=== PATIENT | female | born 2000 | race American Indian/Alaskan Native ===

== ENCOUNTER 2021-01-27 23:41 | Inpatient (IN) | payer SELFPAY ==
[2021-01-28] MEDS ORDERED: ACETAMINOPHEN 325 MG TAB PO ONE (02:57)
[2021-01-28] MEDS ORDERED: ONDANSETRON 4 MG ODT TAB PO ONE (02:57)
[2021-01-28] MEDS ORDERED: MORPHINE 2 MG/1 ML INJ IV ONE (03:03)
[2021-01-28] MEDS ORDERED: ONDANSETRON 4 MG/2 ML INJ IV ONE (03:03)
[2021-01-28] MEDS ORDERED: SODIUM CHLORIDE 0.9% 1000 ML 2,000 ML IV ONE (03:03)
--- NOTE | 2021-01-28 03:05 | Emergency Department Report ---
ED Female HPI - General Chief complaint: Vaginal Bleeding Stated complaint: VAGINAL BLEEDING Time Seen by Provider: 01/28/21 02:56 Source: EMS ( EMS documentation not available at time of chart dictation ) Mode of arrival: Stretcher Limitations: No Limitations - History of Present Illness Initial comments: Patient is a 20-year-old female, who reports that she is 2, possibly para 1. She reports that she is now, but does not know how far along she is. She has not had any care. She presents to the ER today with complaint of lower abdominal pain, and vaginal bleeding. While in the emergency room, the patient delivered a fetus, with sac, with copious bleeding. She was seen emergently by [facility]PECT[facility] physician, who accepted the patient to the labor and delivery service. While in the emergency room, the patient denied headache, neck pain, chest pain. Patient did not endorse urinary symptoms to myself MD Complaint: vaginal bleeding, pelvic pain -: Gradual, hour(s) Consistency: constant Improves with: medication Worsens with: movement Are you Now?: Yes - Related Data Allergies Allergy/AdvReac Type Severity Reaction Status Date / Time No Known Allergies Allergy Verified 01/28/21 03:31 ED Review of Systems ROS: Stated complaint: VAGINAL BLEEDING Other details as noted in HPI Comment: Unobtainable due to pts medical conditions Constitutional: denies: fever Cardiovascular: denies: chest pain Gastrointestinal: abdominal pain Genitourinary: other (Vaginal bleed) Psychiatric: anxiety ED Past Medical Hx - Past Medical History Previous Medical History?: No - Surgical History Past Surgical History?: No ED Physical Exam - General Limitations: Other (Chaperoned by Faustino Joel) General appearance: alert, anxious, in distress, obese - Head Head exam: Present: atraumatic, normocephalic - Eye Eye exam: Present: normal appearance, EOMI. Absent: nystagmus - ENT ENT exam: Present: normal exam, normal orophraynx, mucous membranes moist, normal external ear exam - Neck Neck exam: Present: normal inspection, full ROM. Absent: tenderness, meningismus - Respiratory Respiratory exam: Present: normal lung sounds bilaterally. Absent: respiratory distress, wheezes, rales, rhonchi, stridor, decreased breath sounds - Cardiovascular Cardiovascular Exam: Present: normal rhythm, tachycardia, normal heart sounds. Absent: bradycardia, irregular rhythm, systolic murmur, diastolic murmur, rubs, gallop - GI/Abdominal GI/Abdominal exam: Present: soft, tenderness. Absent: distended, guarding, rebound, rigid, pulsatile mass - External exam: Present: bleeding. Absent: normal external exam Speculum exam: Present: vaginal bleeding, tissue, other (Obvious tissue, and sac being expelled from the uterus during the examination) - Extremities Exam Extremities exam: Present: normal inspection, full ROM, other (2+ pulses noted in the bilateral upper and lower extremities. There is no palpable cord. negative Homans sign. Muscular compartments are soft. The pelvis is stable.). Absent: pedal edema, calf tenderness - Back Exam Back exam: Present: normal inspection, full ROM. Absent: tenderness, CVA tenderness (R), CVA tenderness (L), paraspinal tenderness, vertebral tenderness - Neurological Exam Neurological exam: Present: alert, other (No facial droop. Tongue midline. Extraocular movements intact bilaterally. Facial sensation intact to light touch in V1, V2, V3 distribution bilaterally. 5 and a 5 strength in 4 extremities. Sensation intact to light touch in 4 extremities.) - Psychiatric Psychiatric exam: Present: anxious - Skin Skin exam: Present: warm, dry, intact, normal color. Absent: rash ED Course Vital Signs 01/28/21 02:51 Temperature 97.5 F L Pulse Rate 120 H Respiratory 18 Rate Blood Pressure 116/62 [Right] O2 Sat by Pulse 98 Oximetry - Reevaluation(s) Reevaluation #1: 01/28/21 05:29 Laboratory studies resulted after patient had left the emergency room. Defer to inpatient team to follow-up on laboratory abnormalities and manage. ED Medical Decision Making - Lab Data Result diagrams: 01/28/21 04:02 01/28/21 04:02 Vital Signs 01/28/21 02:51 Temperature 97.5 F L Pulse Rate 120 H Respiratory 18 Rate Blood Pressure 116/62 [Right] O2 Sat by Pulse 98 Oximetry - Radiology Data Radiology results: pending, report reviewed, image reviewed US OB limited INDICATION / CLINICAL INFORMATION: vag bleed pain COMPARISON: None available. FINDINGS: Limited images of the uterus were obtained. No IUP is identified. Patient is reportedly status post recent delivery. Signer Name: Jarett Rice MD Signed: 01/28/2021 3:06 AM Workstation Name: [id number] - Medical Decision Making Differential diagnosis, including but not limited to: Miscarriage, retained products of conception Assessment and plan: 20-year-old female, who presents as , with miscarriage, no care, uncertain gestational age, who presents with expulsion of products, sac, profuse vaginal bleeding and clots, and verbal report of retained placenta. Contacted obstetrics on-call, Dr. Malloy, and have requested emergent bedside evaluation and consultation. He has presented expediently to the emergency room and evaluated the patient, and advises admission to labor and delivery for definitive care and management. He has performed a bedside ultrasound, and endorses that there are retained placental products. He also has graciously accepted the patient to his service on the labor and delivery service for definitive management Critical care attestation.: If time is entered above; I have spent that time in minutes in the direct care of this critically ill patient, excluding procedure time. ED Disposition Clinical Impression: Miscarriage, Retained products of conception Disposition: ADMITTED INPATIENT Is pt being admited?: Yes Does the pt Need Aspirin: No Condition: Serious
[2021-01-28] MEDS ORDERED: SODIUM CHLORIDE 0.9% 1000 ML 1,000 ML ONE (03:33)
[2021-01-28] MEDS ORDERED: ONDANSETRON 4 MG/2 ML INJ ONE (03:33)
[2021-01-28] MEDS ORDERED: MORPHINE 4 MG/1 ML INJ IV ONE (03:41)
[2021-01-28] MEDS ORDERED: CARBOPROST TROMETHAMINE 250 MCG/1 ML INJ IM PRN (03:59)
[2021-01-28] MEDS ORDERED: BUTORPHANOL 2 MG/1 ML INJ IV PRN (03:59)
[2021-01-28] MEDS ORDERED: MINERAL OIL 30 ML ORAL LIQD PO PRN (03:59)
[2021-01-28] MEDS ORDERED: fentaNYL 100 MCG/2 ML INJ IV PRN (03:59)
[2021-01-28] MEDS ORDERED: ACETAMINOPHEN 325 MG TAB PO PRN ×2 (03:59→09:00)
[2021-01-28] MEDS ORDERED: OXYTOCIN DRIP 30 UNITS/500 ML BAG IV SCH (04:00)
--- NOTE | 2021-01-28 04:10 | Ultrasound Report ---
US OB limited INDICATION / CLINICAL INFORMATION: vag bleed pain COMPARISON: None available. FINDINGS: Limited images of the uterus were obtained. No IUP is identified. Patient is reportedly status post r ecent delivery. Signer Name: Jarett Rice MD Signed: 01/28/2021 4:06 AM Workstation Name: [id number]
[2021-01-28 04:41] LABS: Hematocrit 35.4 % (30.3-42.9); Hemoglobin 11.4 gm/dl (10.1-14.3); Mean Corpuscular HGB Conc 32 % (30-34); Mean Corpuscular Volume 86 fl (79-97); Platelet Count 226 K/mm3 (140-440); Red Blood Count 4.11 M/mm3 (3.65-5.03); Red Cell Distribution Width 14.5 % (13.2-15.2)
--- NOTE | 2021-01-28 04:59 | History and Physical Report ---
History of Present Illness Date of admission: 01/28/21 03:59 History of present illness: 20 y/o at 16-2/7 weeks presents to main ED reporting CTX. Upon arrival to ED, buttocks, legs, and thorax were outside the maternal vagina. The head and arms were within the maternal vagina, and this was confirmed with real-time sonography. There were no FHT's noted. These finding were C/W an IUFD. 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 Family/Genetic History: none Social history: no significant social history - Obstetrical History Expected Date of Delivery: 07/13/21 Actual Gestation: 16 Week(s) 2 Day(s) : 2 Para: 0 Induced : 1 Medications and Allergies Allergies Allergy/AdvReac Type Severity Reaction Status Date / Time No Known Allergies Allergy Verified 01/28/21 03:31 Active Meds: Active Medications Acetaminophen (Acetaminophen 325 Mg Tab) 650 mg PO Q4H PRN PRN Reason: Pain, Mild (1-3) Butorphanol Tartrate (Butorphanol 2 Mg/1 Ml Inj) 1 mg IV Q2H PRN PRN Reason: Pain, Moderate(4-6) LABOR PAIN Carboprost Tromethamine (Carboprost Tromethamine 250 Mcg/1 Ml Inj) 250 mcg IM ONCE PRN PRN Reason: Uterine Bleeding Fentanyl (Fentanyl 100 Mcg/2 Ml Inj) 100 mcg IV Q2H PRN PRN Reason: Pain,Severe (7-10) LABOR PAIN Lactated Ringer's (Lactated Ringers) 1,000 mls @ 125 mls/hr IV DIRECT TK Oxytocin/Sodium Chloride (Pitocin/Ns 30 Unit/500ml) 30 units in 500 mls @ 40 mls/hr IV TITR TK; Protocol Mineral Oil (Mineral Oil 30 Ml Oral Liqd) 30 ml PO QHS PRN PRN Reason: Constipation Review of Systems All systems: negative - Vital Signs Vital signs: Vital Signs Temp Pulse Resp BP Pulse Ox 97.5 F L 120 H 18 116/62 98 01/28/21 02:51 01/28/21 02:51 01/28/21 02:51 01/28/21 02:51 01/28/21 02:51 Temp Pulse Resp BP Pulse Ox 97.5 F L 120 H 18 116/62 98 01/28/21 02:51 01/28/21 02:51 01/28/21 02:51 01/28/21 02:51 01/28/21 02:51 - Physical Exam Breasts: Positive: deferred Cardiovascular: Regular rate Lungs: Positive: Normal air movement Abdomen: Positive: normal appearance, normal bowel sounds Vulva: both: normal Vagina: Positive: other ( legs, buttocks, and thorax were protruding from the vagina.) Uterus: Positive: enlarged Adnexa: both: normal Anus/Rectum: Positive: normal perianal skin Extremities: Positive: normal - Obstetrical FHR: category 2 Cervical Dilatation: 10 Results Result Diagrams: 01/28/21 04:02 01/28/21 04:02 Abnormal lab results 01/28/21 Range/Units 04:02 WBC 19.6 H (4.5-11.0) K/mm3 All other labs normal. Ultrasound: pending, image reviewed Assessment and Plan - Patient Problems (1) 16 weeks gestation of Current Visit: Yes Status: Acute Plan to address problem: Admit to delivery unit. (2) IUFD (intrauterine ) Current Visit: Yes Status: Acute Plan to address problem: Etiology is unknown. Admit to delivery unit. >50% of the fetus has delivered, and fetus is in the breech position. I suspect soon. (3) Chorioamnionitis in second trimester Current Visit: Yes Status: Acute Plan to address problem: Rx ampicillin 2 g IVPB q 6 hours and Gentamicin 5 mg/kg/day for triple-I.
[2021-01-28 05:08] LABS: Alanine Aminotransferase 30 units/L (7-56); Albumin 3.5 g/dL (3.9-5); BUN/Creatinine Ratio 12; Blood Urea Nitrogen 6 mg/dL (7-17); Hemolysis Index 0
[2021-01-28 05:15] LABS: Anisocytosis 1+; Platelet Estimate Consistent w Auto; Total Cells Counted 100
[2021-01-28] MEDS: LACTATED RINGERS 1,000 ML IV SCH ×3 (05:42→21:24)
[2021-01-28] MEDS ORDERED: CARBOPROST TROMETHAMINE 250 MCG/1 ML INJ IM NR (06:52)
--- NOTE | 2021-01-28 07:25 | Procedure Note ---
OB Delivery Note - Vaginal Delivery presentation: breech Intrapartum events: other(please specify) (IUFD) Delivery induction: none Delivery monitor: none Route of delivery: Delivery placenta: spontaneous Delivery cord: 3 umbilical vessels Episiotomy: none Delivery laceration: none Anesthesia: none Delivery comments: Placenta expelled spontaneously after Hemabate x2. Antibiotics (ampicillin & gentamicin) to continue.
[2021-01-28] MEDS: GENTAMICIN 410 MG in SODIUM CHLORIDE 0.9% 100 ML IV SCH (08:38)
[2021-01-28] MEDS ORDERED: ONDANSETRON 4 MG/2 ML INJ IV PRN (09:00)
[2021-01-28] MEDS ORDERED: WITCH HAZEL/ GLYCERIN PAD TP PRN (09:00)
[2021-01-28] MEDS ORDERED: HYDROcodone/ACETAMINOPHEN 5-325 MG TAB PO PRN (09:00)
[2021-01-28] MEDS ORDERED: LANOLIN/ZINC/DIMETHICONE (LANSINOH) 7 GM TP PRN (09:00)
[2021-01-28] MEDS ORDERED: PROMETHAZINE 25 MG RECT SUPP PR PRN (09:00)
[2021-01-28] MEDS ORDERED: PROMETHAZINE 25 MG TAB PO PRN (09:00)
[2021-01-28] MEDS: AMPICILLIN/NS 2 GM/100 ML 2 GM/100 ML BAG IV SCH ×3 (09:02→23:38)
[2021-01-28] MEDS: IBUPROFEN 600 MG TAB PO SCH ×2 (09:09→20:15)
[2021-01-28 09:10] LABS: Monocytes # (Auto) 0.7 K/mm3 (0.0-0.8); Monocytes % (Auto) 3.4 % (0.0-7.3)
[2021-01-28 10:00] LABS: Bilirubin,Urine NEG (Negative); Blood,Urine LG (Negative); Color,Urine Yellow (Yellow); Mucus,Urine 1+ /HPF; Protein,Urine <15 mg/dL mg/dL (Negative); Urobilinogen,Urine < 2.0 mg/dL (<2.0)
[2021-01-28] MEDS ORDERED: diphenhydrAMINE 25 MG CAP PO PRN (10:00)
[2021-01-28 10:44] LABS: Hematocrit 28.6 % (30.3-42.9); Hemoglobin 9.3 gm/dl (10.1-14.3); Mean Corpuscular HGB Conc 33 % (30-34); Mean Corpuscular Volume 87 fl (79-97); Platelet Count 214 K/mm3 (140-440); Red Blood Count 3.28 M/mm3 (3.65-5.03); Red Cell Distribution Width 14.7 % (13.2-15.2)
--- NOTE | 2021-01-28 13:57 | Event Note ---
Date: 01/28/21 pt evaluated with fundal tenderness and WBC on cbc this am at 20.4; will treat with broad spectrum amp/gent/clinda antibiotics, repeat cbc in am and possibly discharge pt home tomorrow. Nurse notified. Plan of care discussed with pt.
[2021-01-28] MEDS ORDERED: FERROUS SULFATE 325 MG TAB PO SCH (14:00)
[2021-01-28] MEDS ORDERED: MAGNESIUM HYDROXIDE (MOM) ORAL LIQD UDC PO PRN (22:00)
[2021-01-29] MEDS: IBUPROFEN 600 MG TAB PO SCH ×2 (05:42→21:00)
[2021-01-29] MEDS: AMPICILLIN/NS 2 GM/100 ML 2 GM/100 ML BAG IV SCH ×3 (05:43→20:30)
--- NOTE | 2021-01-29 06:21 | Progress Note ---
Assessment and Plan A: day 1 S/P of 16 week IUFD. Anemia. Leukocytosis. Tachycardia. Grief process. P: Repeat CBC has been ordered and drawn. Continue triple antibiotics IV. Supplement with iron. Case management consult. Subjective - Subjective Date of service: 01/29/21 Principal diagnosis: day 1 S/P 16 week IUFD Interval history: Patient is receiving ampicillin, gentamicin, and clindamycin. CBC drawn this morning; results pending. Patient reports: appetite normal, voiding normally, pain well controlled, flatus, ambulating normally, no dizzy ambulation, no nauseated Objective - Vital Signs Latest vital signs: Vital Signs Temp Pulse Resp BP BP Pulse Ox 01/29/21 02:21 97.9 F 109 H 18 106/56 99 01/28/21 21:28 98.8 F 110 H 18 128/58 100 01/28/21 19:30 98 01/28/21 17:21 98.4 F 117 H 18 124/68 100 01/28/21 13:04 98.0 F 92 H 18 104/46 100 01/28/21 08:41 88 119/64 99 01/28/21 08:40 98.0 F 85 14 119/64 100 01/28/21 08:36 85 100 01/28/21 08:31 92 H 100 01/28/21 08:26 82 100 01/28/21 08:23 18 98 01/28/21 08:21 94 H 100 01/28/21 08:16 94 H 99 01/28/21 08:11 93 H 100 01/28/21 08:06 89 99 01/28/21 08:01 95 H 100 01/28/21 07:56 93 H 99 01/28/21 07:51 81 99 01/28/21 07:48 78 114/56 01/28/21 07:47 97.9 F 85 18 114/56 98 01/28/21 07:46 110 H 98 01/28/21 07:41 80 98 01/28/21 07:36 84 99 01/28/21 07:31 87 98 01/28/21 07:26 98 H 98 01/28/21 07:21 78 99 01/28/21 07:16 78 98 01/28/21 07:11 75 97 01/28/21 07:06 74 97 01/28/21 07:03 78 92 01/28/21 07:01 84 100 01/28/21 06:56 75 100 01/28/21 06:51 85 100 01/28/21 06:46 92 H 100 01/28/21 06:41 87 18 99 01/28/21 06:37 106 H 94 01/28/21 06:36 90 99 01/28/21 06:31 95 H 100 01/28/21 06:26 95 H 99 01/28/21 06:21 75 99 Intake and Output 01/28/21 01/28/21 01/29/21 15:59 23:59 07:59 Intake Total 972.628 0420 340 Output Total 640 525 200 Balance 596.390 7984 140 Intake: IV 865.919 6334 100 AMPICILLIN/NS 2 GM/100 ML 100 100 100 2 gm In 100 ml @ 100 mls /hr IV Q6H TK Rx#: [id number] CLEOCIN 900 MG/50 mL 900 50 mg In 50 ml @ 100 mls/hr IV Q8H TK Rx#:[id number] Lactated Ringers 1,000 ml 253.770 3549 @ 125 mls/hr IV DIRECT TK Rx#:[id number] Oral 240 Intake, Free Water 600 240 Output: Urine 640 525 200 Void 640 525 200 Other: Total, Intake Amount 240 Total, Output Amount 300 200 200 Voiding Method Toilet Toilet # Voids Void 1 2 - Exam Cardiovascular: Present: Regular rate Lungs: Present: Clear to auscultation Abdomen: Present: normal appearance, soft. Absent: distention, guarding, rigidity Uterus: Present: firm, tenderness, fundal height below umbilicus. Absent: bogginess Extremities: Absent: tenderness, edema - Labs Labs: Abnormal lab results 01/28/21 01/28/21 Range/Units 04:02 09:37 WBC 20.4 H (4.5-11.0) K/mm3 RBC 3.28 L (3.65-5.03) M/mm3 Hgb 9.3 L (10.1-14.3) gm/dl Hct 28.6 L D (30.3-42.9) % Seg Neutrophils # 18.0 H (1.8-7.7) K/mm3
[2021-01-29 09:23] LABS: Basophils # (Auto) 0.1 K/mm3 (0.0-0.1); Basophils % (Auto) 0.7 % (0.0-1.8); Eosinophils # (Auto) 0.1 K/mm3 (0.0-0.4); Eosinophils % (Auto) 1.3 % (0.0-4.3); Hematocrit 21.8 % (30.3-42.9); Hemoglobin 7.2 gm/dl (10.1-14.3); Lymphocytes # (Auto) 3.3 K/mm3 (1.2-5.4); Lymphocytes % (Auto) 30.4 % (13.4-35.0); Mean Corpuscular HGB Conc 33 % (30-34); Mean Corpuscular Volume 88 fl (79-97); Monocytes # (Auto) 0.7 K/mm3 (0.0-0.8); Monocytes % (Auto) 6.5 % (0.0-7.3); Platelet Count 178 K/mm3 (140-440); Red Blood Count 2.47 M/mm3 (3.65-5.03); Red Cell Distribution Width 14.8 % (13.2-15.2)
[2021-01-29] MEDS: GENTAMICIN 410 MG in SODIUM CHLORIDE 0.9% 100 ML IV SCH (10:06)
[2021-01-29] MEDS: LACTATED RINGERS 1,000 ML IV SCH (10:06)
[2021-01-29] MEDS: FERROUS SULFATE 325 MG TAB PO SCH (16:33)
[2021-01-29] MEDS ORDERED: GENTAMICIN 410 MG in SODIUM CHLORIDE 0.9% 100 ML IV SCH (17:29)
--- NOTE | 2021-01-29 17:37 | Event Note ---
Date: 01/29/21 Pt evaluated with hgb falling. Pt having chills when I went in the room yet afrebrile. Pt has been receiving amp/gent/clinda. Bimanual done and cervix closed. Limited size of uterus due to habitus. Pelvic u/s ordered to ensure normal uterus and adnexa. Consult done to hospitalist for persistent tacchycardia and Dr. Etienne recommends CT Abd/Pelvis and same ordered. Blood cx and urine cx negative. Plan of care discussed with pt. All questions encouraged and answered.
[2021-01-29 19:43] LABS: Basophils # (Auto) 0.1 K/mm3 (0.0-0.1); Basophils % (Auto) 0.4 % (0.0-1.8); Eosinophils # (Auto) 0.2 K/mm3 (0.0-0.4); Eosinophils % (Auto) 1.2 % (0.0-4.3); Hematocrit 25.4 % (30.3-42.9); Hemoglobin 8.1 gm/dl (10.1-14.3); Lymphocytes # (Auto) 3.1 K/mm3 (1.2-5.4); Lymphocytes % (Auto) 22.2 % (13.4-35.0); Mean Corpuscular HGB Conc 32 % (30-34); Mean Corpuscular Volume 88 fl (79-97); Monocytes % (Auto) 6.9 % (0.0-7.3); Platelet Count 228 K/mm3 (140-440); Red Blood Count 2.89 M/mm3 (3.65-5.03)
--- NOTE | 2021-01-29 20:26 | Ultrasound Report ---
US PELVIC LIMITED INDICATION / CLINICAL INFORMATION: anemia, , ppd1 IUFD; retain POC; fluid pelvic. COMPARISON: Yesterday. FINDINGS: Transabdominal images were obtained. The uterus measures 9.5 x 6.8 x 9.5 cm. The endometrial stripe m easures approximately 2.6 cm AP. The endometrium is homogeneous in appearance and no endometrial flui d is seen. The right ovary measures 3.0 x 2.0 x 1.8 cm and the left ovary 4.0 x 2.7 x 2.9 cm. There i s normal blood flow to both ovaries on Doppler exam. No abnormal mass or fluid collection is seen. IMPRESSION: Nonspecific thickening of the endometrial stripe without other abnormality. Signer Name: Fahad Trotter MD Signed: 01/29/2021 8:22 PM Workstation Name: [id number]
--- NOTE | 2021-01-30 00:57 | Cat Scan Report ---
CT ABDOMEN AND PELVIS WITH CONTRAST INDICATION / CLINICAL INFORMATION: Worsening severe anemia, tachycardia, IUFD. TECHNIQUE: Axial CT images were obtained through the abdomen and pelvis after 100 cc Omnipaque [address] scans at this location are performed using CT dose reduction for ALARA by means of automated exposure control. COMPARISON: Pelvic ultrasound from earlier today. FINDINGS: LOWER CHEST: No significant abnormality. LIVER: No significant abnormality. BILIARY: The gallbladder is unremarkable. No biliary ductal dilatation. PANCREAS: No significant abnormality. SPLEEN: No significant abnormality. ADRENALS: No significant abnormality. KIDNEYS / URETERS: No significant abnormality. GI TRACT: No significant abnormality of the stomach, small bowel or colon. The appendix is unremarkab le. PERITONEUM: No free fluid. No free air. No fluid collection. LYMPH NODES: No significant adenopathy. VASCULATURE: No significant abnormality. URINARY BLADDER: No significant abnormality. REPRODUCTIVE ORGANS: There is expected prominence of the uterus after recent delivery. Heterogeneous enhancement of the uterus is noted without a distinct mass. No significant adnexal abnormality. ADDITIONAL FINDINGS: None. BONES: No significant abnormality. IMPRESSION: 1. Heterogeneous enhancement of the uterus without visualization of a uterine mass or hematoma. 2. No other acute findings. Signer Name: Gabriel Moreira MD Signed: 01/30/2021 12:52 AM Workstation Name: [id number]
[2021-01-30] MEDS ORDERED: LACTATED RINGERS 1,000 ML IV SCH (01:30)
[2021-01-30] MEDS: DOCUSATE SODIUM 100 MG CAP PO SCH ×2 (02:07→11:09)
[2021-01-30] MEDS: IBUPROFEN 600 MG TAB PO SCH (02:07)
[2021-01-30] MEDS: FERROUS SULFATE 325 MG TAB PO SCH ×2 (02:07→08:45)
[2021-01-30] MEDS: AMPICILLIN/NS 2 GM/100 ML 2 GM/100 ML BAG IV SCH ×2 (03:25→03:26)
[2021-01-30] MEDS: ASCORBIC ACID 500 MG TAB PO SCH ×2 (03:28→11:08)
--- NOTE | 2021-01-30 06:35 | Consultation ---
History of Present Illness - Reason for Consult Consult date: 01/29/21 Medical management Requesting physician: MELISSA IBARRA Past History Social history: no significant social history Medications and Allergies Allergies Allergy/AdvReac Type Severity Reaction Status Date / Time No Known Allergies Allergy Verified 01/28/21 03:31 Active Meds: Active Medications Acetaminophen (Acetaminophen 325 Mg Tab) 650 mg PO Q4H PRN PRN Reason: Pain MILD(1-3)/Fever >100.5/WILLIS Hydrocodone Bitart/Acetaminophen (Hydrocodone/Acetaminophen 5-325 Mg Tab) 2 each PO Q6H PRN PRN Reason: Pain, Moderate (4-6) Ascorbic Acid (Ascorbic Acid 500 Mg Tab) 500 mg PO BID [facility] Last Admin: 01/30/21 03:28 Dose: 500 mg Documented by: Bisacodyl (Bisacodyl 10 Mg Rect Supp) 10 mg UT BID PRN PRN Reason: Constipation Butorphanol Tartrate (Butorphanol 2 Mg/1 Ml Inj) 1 mg IV Q2H PRN PRN Reason: Pain, Moderate(4-6) LABOR PAIN Last Admin: 01/28/21 06:58 Dose: 1 mg Documented by: Diphenhydramine HCl (Diphenhydramine 25 Mg Cap) 25 mg PO Q6H PRN PRN Reason: Itching Docusate Sodium (Docusate Sodium 100 Mg Cap) 100 mg PO BID [facility] Last Admin: 01/30/21 02:07 Dose: 100 mg Documented by: Fentanyl (Fentanyl 100 Mcg/2 Ml Inj) 100 mcg IV Q2H PRN PRN Reason: Pain,Severe (7-10) LABOR PAIN Last Admin: 01/28/21 05:41 Dose: 100 mcg Documented by: Ferrous Sulfate (Ferrous Sulfate 325 Mg Tab) 325 mg PO TID [facility] Last Admin: 01/30/21 02:07 Dose: 325 mg Documented by: Oxytocin/Sodium Chloride (Pitocin/Ns 30 Unit/500ml) 30 units in 500 mls @ 40 mls/hr IV TITR [facility]; Protocol Last Admin: 01/28/21 05:42 Dose: 40 ml/hr, 40 mls/hr Documented by: Ampicillin Sodium (Ampicillin/Ns 2 Gm/100 Ml) 2 gm in 100 mls @ 100 mls/hr IV Q6H [facility]; Protocol Stop: 01/30/21 12:59 Last Admin: 01/30/21 03:26 Dose: 100 mls/hr Documented by: Clindamycin HCl (Cleocin 900 Mg/50 Ml) 900 mg in 50 mls @ 100 mls/hr IV Q8H TK; Protocol Stop: 01/31/21 09:57 Last Admin: 01/30/21 02:06 Dose: 100 mls/hr Documented by: Gentamicin Sulfate 410 mg/ (Sodium Chloride) 110.25 mls @ 200 mls/hr IV Q24H TK; Protocol Stop: 01/30/21 18:02 Last Admin: 01/30/21 03:30 Dose: Not Given Documented by: Lactated Ringer's (Lactated Ringers) 1,000 mls @ 25 mls/hr IV DIRECT TK Last Admin: 01/30/21 01:56 Dose: 25 mls/hr Documented by: Ibuprofen (Ibuprofen 600 Mg Tab) 600 mg PO Q6H TK Last Admin: 01/30/21 02:07 Dose: 600 mg Documented by: Magnesium Hydroxide (Magnesium Hydroxide (Mom) Oral Liqd Udc) 30 ml PO HS PRN PRN Reason: Constipation Mineral Oil (Mineral Oil 30 Ml Oral Liqd) 30 ml PO QHS PRN PRN Reason: Constipation Multi-Ingredient Ointment (Lanolin/Zinc/Dimethicone (Lansinoh) 7 Gm) 1 applic TP PRN PRN PRN Reason: Sore Nipples Ondansetron HCl (Ondansetron 4 Mg/2 Ml Inj) 4 mg IV Q8H PRN PRN Reason: Nausea And Vomiting Last Admin: 01/29/21 21:17 Dose: 4 mg Documented by: Promethazine HCl (Promethazine 25 Mg Rect Supp) 25 mg UT Q6H PRN PRN Reason: Nausea And Vomiting Promethazine HCl (Promethazine 25 Mg Tab) 25 mg PO Q6H PRN PRN Reason: Nausea And Vomiting Sodium Chloride (Sodium Chloride 0.9% 10 Ml Flush Syringe) 10 ml IV PRN NR Stop: 02/10/21 07:59 Witch Mayra/Glycerin (Witch Mayra/ Glycerin Pad) 1 each TP PRN PRN PRN Reason: Hemorrhoid/cleansing/soothing Exam - Constitutional Vitals: Temp Pulse Resp BP Pulse Ox 98.0 F 89 18 93/34 100 01/30/21 04:51 01/30/21 04:51 01/30/21 04:51 01/30/21 04:51 01/30/21 04:51 Results - Labs CBC & Chem 7: 01/29/21 19:23 01/28/21 04:02 Labs: Abnormal lab results 01/29/21 01/29/21 Range/Units 08:14 19:23 WBC 14.0 H (4.5-11.0) K/mm3 RBC 2.47 L 2.89 L (3.65-5.03) M/mm3 Hgb 7.2 L 8.1 L (10.1-14.3) gm/dl Hct 21.8 L D 25.4 L (30.3-42.9) % [place]cd[place] # (Auto) 1.0 H (0.0-0.8) K/mm3 Seg Neutrophils # 9.7 H (1.8-7.7) K/mm3 - Imaging and Cardiology CT scan - abdomen: report reviewed (No acute findings) Assessment and Plan - Patient Problems (1) Tachycardia Current Visit: Yes Status: Acute Plan to address problem: Volume depletion IV fluids for now
[2021-01-30] MEDS ORDERED: IBUPROFEN 800 MG TAB PO PRN (08:00)
[2021-01-30 09:30] VITALS: BP 109/61
--- NOTE | 2021-01-30 09:40 | Progress Note ---
Assessment and Plan A: day 2 S/P following IUFD at 16 weeks. Grief process. Anemia. P: Dr. Melgoza orders to discharge patient home today. Patient is awaiting case consultant to see her to help her with community resources for grief counseling. Discussed with patient discharge instructions and warning signs. Advised patient to continue taking her vitamin and iron supplement daily at home. Advised patient to take Augmentin at home as prescribed (Rx Augmentin and Motrin written by Dr. Melgoza and RN to give written Rxs to patient at time of discharge today). Advised patient to avoid intercourse, lifting, housework. Advised patient to follow up at [facility] office in 1 week (patient to call for appointment). Patient voiced understanding of all instructions. Subjective - Subjective Date of service: 01/30/21 Principal diagnosis: day 2 S/P 16 week IUFD (16 weeks) Interval history: Dr. Melgoza reviewed chart and orders to discharge patient home today. Will discharge patient home today after she sees case consultant (order was put in yesterday but still waiting to see case consultant to discuss community resources for grief counseling). Patient denies headache, dizziness, chest pain, cough, shortness of breath, fever or chills, abdominal pain, heavy bleeding, urinary symptoms, or depression. Patient is experiencing grief process. States she has good family support. States she plans to seek outpatient grief counseling. Patient reports: appetite normal, voiding normally, pain well controlled, flatus, ambulating normally, no dizzy ambulation, no nauseated Objective - Vital Signs Latest vital signs: Vital Signs Temp Pulse Resp BP Pulse Ox Pulse Ox 01/30/21 09:01 98.5 F 98 H 18 109/61 100 01/30/21 08:00 99 01/30/21 04:51 98.0 F 89 18 93/34 100 01/30/21 00:52 98.0 F 90 18 105/41 99 01/29/21 20:15 98.2 F 120 H 18 114/59 99 01/29/21 16:38 98.9 F 110 H 18 113/64 100 Intake and Output 01/29/21 01/30/21 01/30/21 23:59 07:59 15:59 Intake Total 300 200 Balance 300 200 Intake: Oral 200 Intake, Free Water 300 Other: Total, Intake Amount 200 # Voids Void 1 1 - Exam Cardiovascular: Present: Regular rate, No murmurs Lungs: Present: Clear to auscultation Abdomen: Present: normal appearance, soft, normal bowel sounds. Absent: distention, tenderness, guarding, rigidity Uterus: Present: firm, fundal height below umbilicus. Absent: bogginess, tenderness Extremities: Absent: tenderness, edema - Labs Labs: Abnormal lab results 01/29/21 Range/Units 19:23 WBC 14.0 H (4.5-11.0) K/mm3 RBC 2.89 L (3.65-5.03) M/mm3 Hgb 8.1 L (10.1-14.3) gm/dl Hct 25.4 L (30.3-42.9) % [place] # (Auto) 1.0 H (0.0-0.8) K/mm3 Seg Neutrophils # 9.7 H (1.8-7.7) K/mm3
--- NOTE | 2021-01-30 09:51 | Event Note ---
Date: 01/30/21 Late entry for normal pelvic u/s and normal CT seen. Appreciate med consult and pt with normal heart now, s/p IV abx x48hrs and IV fluids. May go home and SHANNAN Lee notified.
--- NOTE | 2021-01-30 09:58 | Discharge Summary ---
Providers - Providers Date of Admission: 01/28/21 07:26 Date of discharge: 01/30/21 Attending physician: MELISSA IBARRA 01/28/21 03:37 Consult to Physician [CONS] Urgent Comment: Consulting Provider: NICHO ERVIN Physician Instructions: Reason For Exam: miscarriage 01/29/21 06:24 Consult to Case Management [CONS] Routine Services Needed at Discharge: Paver Layer Comment:: IUFD; grief process 01/29/21 17:29 Consult to Physician [CONS] Urgent Comment: Consulting Provider: DAVID STEVENS Physician Instructions: Reason For Exam: persistent tacchycardia, ppd#1 IUFD 16wk vag deliv Primary care physician: CONTRACT MODELER Hospitalization Reason for admission: IUFD Delivery: Laceration: none Discharge diagnosis: other (IUFD 16 weeks, delivered) Pertinent studies: Labs, ultrasound, CT Hospital course: Stable hospital course Condition at discharge: Good Disposition: 01 HOME / SELF CARE / HOMELESS - Discharge Diagnoses (1) IUFD (intrauterine ) Status: Acute (2) Anemia Status: Acute Plan - Discharge Medications Prescriptions: Amoxicillin/Potassium Clav [Augmentin 875-125 Tablet] 1 each PO BID 5 Days #10 tablet Ibuprofen [Motrin] 800 mg PO Q8HR PRN 21 Days #40 tablet PRN Reason: Pain , Severe (7-10) - Provider Discharge Summary Activity: routine, no sex for 6 weeks, no heavy lifting 4 weeks, no strenuous exercise Diet: routine Instructions: routine Additional instructions: Continue taking your vitamin and iron supplement daily at home. Take Augmentin as prescribed at home. Follow up at [facility] in 1 week. Call your doctor immediately for: * Fever > 100.5 * Heavy vaginal bleeding ( >1 pad per hour) * Severe persistent headache * Shortness of breath * Reddened, hot, painful area to leg or breast - Follow up plan Follow up: ALMAS CAAL CNM [Advanced Practice Nurse] - 7 Days
--- NOTE | 2021-01-30 11:56 | Event Note ---
Date: 01/30/21 Discharge order cancelled and mental health consult ordered because patient's nurse just informed me that patient did not pass her depression screen this morning. Spoke with patient about cancelled discharge order and need to see mental health provider before discharge. Patient states she will sign herself out AMA today. Advised patient of risks and advised patient that she is always welcome to return. Warning signs discussed with pt.
--- NOTE | 2021-01-30 12:25 | Event Note ---
Date: 01/30/21 Medicine was originally consulted due to the patient being tachycardic. Recommendations were made for volume resuscitation, the patient's tachycardia has resolved. Medicine will be signing off at this time. Please all hesitate to reach out should any questions arise.
== END 2021-01-30 12:15 | disposition left against medical advice (07) | DRG 805 ==
LOC: ED 23:41 → LD 01-28 03:59 → OBSVTOIN 01-28 07:26 → OB 01-28 09:12
PROVIDERS: ADMIT Obstetrics & Gynecology; ATTEND Obstetrics & Gynecology
PROC: 10E0XZZ Delivery of Products of Conception, External Approach (ICD-10-PCS; principal; 2021-01-28)
DX: O36.4XX0 Maternal care for intrauterine death, not applicable or unspecified (principal); O41.1220 Chorioamnionitis, second trimester, not applicable or unspecified; Z37.1 Single stillbirth; O60.12X0 Preterm labor second trimester with preterm delivery second trimester, not applicable or unspecified; O99.13 Other diseases of the blood and blood-forming organs and certain disorders involving the immune mechanism complicating the puerperium; Z3A.16 16 weeks gestation of pregnancy; O32.1XX0 Maternal care for breech presentation, not applicable or unspecified; O90.81 Anemia of the puerperium; O99.891 Other specified diseases and conditions complicating pregnancy; R00.0 Tachycardia, unspecified; Z20.822 Contact with and (suspected) exposure to COVID-19
CPT/HCPCS: 36415; 74177; 76815; 76857; 80053; 81001; 83735; 84702; 85007; 85025; 85027; 86592; 86706; 86762; 86850; 86900; 86901; 87040; 87086; 87806; 88305; 96360; 99285; G0378; J3490; J7502; Q0162; J0290; J0595; J1580; J2270; J2405; J2590; J3010; J7030; J7120; Q9967; U0003

== ENCOUNTER 2021-02-09 17:22 | Emergency (ER) | payer SELFPAY ==
[2021-02-09 20:01] LABS: Basophils % (Auto) 0.6 % (0.0-1.8); Eosinophils % (Auto) 0.3 % (0.0-4.3); Hematocrit 29.6 % (30.3-42.9); Hemoglobin 9.4 gm/dl (10.1-14.3); Lymphocytes # (Auto) 2.1 K/mm3 (1.2-5.4); Lymphocytes % (Auto) 34.5 % (13.4-35.0); Mean Corpuscular HGB Conc 32 % (30-34); Mean Corpuscular Volume 87 fl (79-97); Monocytes # (Auto) 0.7 K/mm3 (0.0-0.8); Monocytes % (Auto) 11.4 % (0.0-7.3); Platelet Count 368 K/mm3 (140-440); Red Cell Distribution Width 15.5 % (13.2-15.2)
[2021-02-09 20:22] LABS: Alanine Aminotransferase 17 units/L (7-56); Albumin 3.9 g/dL (3.9-5); Blood Urea Nitrogen 7 mg/dL (7-17); Calcium 9.1 mg/dL (8.4-10.2); Hemolysis Index 3
[2021-02-09 20:28] LABS: BUN/Creatinine Ratio 10
[2021-02-10] MEDS ORDERED: ACETAMINOPHEN 500 MG TAB PO ONE (00:36)
--- NOTE | 2021-02-10 01:29 | XRay Report ---
CHEST 2 VIEWS INDICATION / CLINICAL INFORMATION: cough. COMPARISON: None available. FINDINGS: SUPPORT DEVICES: None. HEART / MEDIASTINUM: No significant abnormality. LUNGS / PLEURA: No significant pulmonary or pleural abnormality. No pneumothorax. ADDITIONAL FINDINGS: No significant additional findings. IMPRESSION: 1. No acute findings. Signer Name: Santo Cortes DO Signed: 02/10/2021 1:25 AM Workstation Name: [id number]
[2021-02-10 01:45] LABS: Bilirubin,Urine NEG (Negative); Blood,Urine MOD (Negative); Color,Urine Yellow (Yellow); Mucus,Urine FEW /HPF; Protein,Urine <15 mg/dL mg/dL (Negative); Urobilinogen,Urine < 2.0 mg/dL (<2.0)
--- NOTE | 2021-02-10 02:10 | Emergency Department Report ---
ED General Adult HPI - General Chief complaint: Vaginal Bleeding Stated complaint: POSSIBLE MISCARRIAGE Time Seen by Provider: 02/10/21 01:30 Source: patient Mode of arrival: Ambulatory Limitations: No Limitations - History of Present Illness Initial comments: Patient is a 20-year-old female who presents with weakness and body aches been going on for last few days. She also states that she has been feeling some nausea. She was seen by [facility] and was told to come over here to the emergency department. Patient states pain is a 3 out of 10. Patient is also requesting some medication for anxiety. Severity scale (0 -10): 8 - Related Data Previous Rx's Medication Instructions Recorded Last Taken Type Amoxicillin/Potassium Clav 1 each PO BID 5 Days #10 tablet 01/30/21 Unknown Rx [Augmentin 875-125 Tablet] Ibuprofen [Motrin] 800 mg PO Q8HR PRN 21 Days #40 01/30/21 Unknown Rx tablet Ibuprofen/Pseudoephedrine HCl 1 each PO Q6H PRN #30 tablet 02/10/21 Unknown Rx [Advil Cold & Sinus Caplet] Ondansetron [Zofran Odt] 4 mg PO Q8HR #12 tab.rapdis 02/10/21 Unknown Rx hydrOXYzine HCL [Atarax] 25 mg PO Q6HR PRN #25 tablet 02/10/21 Unknown Rx Allergies Allergy/AdvReac Type Severity Reaction Status Date / Time No Known Allergies Allergy Verified 01/28/21 03:31 ED Review of Systems ROS: Stated complaint: POSSIBLE MISCARRIAGE Other details as noted in HPI Constitutional: denies: chills, fever Eyes: denies: eye pain, eye discharge, vision change ENT: denies: ear pain, throat pain Respiratory: denies: cough, shortness of breath, wheezing Cardiovascular: denies: chest pain, palpitations Endocrine: no symptoms reported Gastrointestinal: denies: abdominal pain, nausea, diarrhea Genitourinary: other (Vaginal bleeding). denies: urgency, dysuria, discharge Musculoskeletal: myalgia. denies: back pain, joint swelling, arthralgia Skin: denies: rash, lesions Neurological: denies: headache, weakness, paresthesias Psychiatric: denies: anxiety, depression Hematological/Lymphatic: denies: easy bleeding, easy bruising ED Past Medical Hx - Past Medical History Previous Medical History?: No Hx Hypertension: No Hx Congestive Heart Failure: No Hx Diabetes: No Hx Deep Vein Thrombosis: No Hx Renal Disease: No Hx Sickle Cell Disease: No Hx Seizures: No Hx Asthma: No Hx COPD: No Hx HIV: No - Surgical History Past Surgical History?: No - Social History Smoking Status: Never Smoker - Medications Home Medications: Home Medications Medication Instructions Recorded Confirmed Last Taken Type Amoxicillin/Potassium Clav 1 each PO BID 5 Days #10 tablet 01/30/21 Unknown Rx [Augmentin 875-125 Tablet] Ibuprofen [Motrin] 800 mg PO Q8HR PRN 21 Days #40 01/30/21 Unknown Rx tablet Ibuprofen/Pseudoephedrine HCl 1 each PO Q6H PRN #30 tablet 02/10/21 Unknown Rx [Advil Cold & Sinus Caplet] Ondansetron [Zofran Odt] 4 mg PO Q8HR #12 tab.rapdis 02/10/21 Unknown Rx hydrOXYzine HCL [Atarax] 25 mg PO Q6HR PRN #25 tablet 02/10/21 Unknown Rx ED Physical Exam - General Limitations: No Limitations General appearance: alert, in no apparent distress - Head Head exam: Present: atraumatic, normocephalic - Eye Eye exam: Present: normal appearance - ENT ENT exam: Present: mucous membranes moist - Neck Neck exam: Present: normal inspection - Respiratory Respiratory exam: Present: normal lung sounds bilaterally. Absent: respiratory distress - Cardiovascular Cardiovascular Exam: Present: regular rate, normal rhythm. Absent: systolic murmur, diastolic murmur, rubs, gallop - GI/Abdominal GI/Abdominal exam: Present: soft, normal bowel sounds - Extremities Exam Extremities exam: Present: normal inspection - Back Exam Back exam: Present: normal inspection - Neurological Exam Neurological exam: Present: alert, oriented X3 - Psychiatric Psychiatric exam: Present: normal affect, normal mood - Skin Skin exam: Present: warm, dry, intact, normal color. Absent: rash ED Course Vital Signs 02/09/21 02/10/21 19:36 00:55 Temperature 99.8 F H Pulse Rate 107 H Respiratory 18 16 Rate Blood Pressure 137/76 O2 Sat by Pulse 100 Oximetry ED Medical Decision Making - Lab Data Result diagrams: 02/09/21 19:49 02/09/21 19:49 Lab Results 02/09/21 02/09/21 02/09/21 Range/Units 19:49 19:49 19:49 WBC 6.2 (4.5-11.0) K/mm3 RBC 3.40 L (3.65-5.03) M/mm3 Hgb 9.4 L (10.1-14.3) gm/dl Hct 29.6 L (30.3-42.9) % MCV 87 (79-97) fl MCH 28 (28-32) pg MCHC 32 (30-34) % RDW 15.5 H (13.2-15.2) % Plt Count 368 (140-440) K/mm3 Lymph % (Auto) 34.5 (13.4-35.0) % [place] % (Auto) 11.4 H (0.0-7.3) % Eos % (Auto) 0.3 (0.0-4.3) % Baso % (Auto) 0.6 (0.0-1.8) % Lymph # (Auto) 2.1 (1.2-5.4) K/mm3 [place] # (Auto) 0.7 (0.0-0.8) K/mm3 Eos # (Auto) 0.0 (0.0-0.4) K/mm3 Baso # (Auto) 0.0 (0.0-0.1) K/mm3 Seg Neutrophils % 53.2 (40.0-70.0) % Seg Neutrophils # 3.3 (1.8-7.7) K/mm3 Sodium (137-145) mmol/L Potassium (3.6-5.0) mmol/L Chloride (98-107) mmol/L Carbon Dioxide (22-30) mmol/L Anion Gap mmol/L BUN (7-17) mg/dL Creatinine (0.6-1.2) mg/dL Estimated GFR ml/min BUN/Creatinine Ratio % Glucose (65-100) mg/dL Calcium (8.4-10.2) mg/dL Total Bilirubin (0.1-1.2) mg/dL AST (5-40) units/L ALT (7-56) units/L Alkaline Phosphatase (35-129) units/L Total Protein (6.3-8.2) g/dL Albumin (3.9-5) g/dL Albumin/Globulin Ratio % HCG, Quant 30.05 H (0-4) mIU/mL Urine Color (Yellow) Urine Turbidity (Clear) Urine pH (5.0-7.0) Ur Specific [place] (1.003-1.030) Urine Protein (Negative) mg/dL Urine Glucose (UA) (Negative) mg/dL Urine Ketones (Negative) mg/dL Urine Blood (Negative) Urine Nitrite (Negative) Urine Bilirubin (Negative) Urine Urobilinogen (<2.0) mg/dL Ur Leukocyte Esterase (Negative) Urine WBC (Auto) (0.0-6.0) /HPF Urine RBC (Auto) (0.0-6.0) /HPF U Epithel Cells (Auto) (0-13.0) /HPF Urine Mucus /HPF Blood Type B POSITIVE 02/09/21 02/10/21 Range/Units 19:49 01:15 WBC (4.5-11.0) K/mm3 RBC (3.65-5.03) M/mm3 Hgb (10.1-14.3) gm/dl Hct (30.3-42.9) % MCV (79-97) fl MCH (28-32) pg MCHC (30-34) % RDW (13.2-15.2) % Plt Count (140-440) K/mm3 Lymph % (Auto) (13.4-35.0) % [place] % (Auto) (0.0-7.3) % Eos % (Auto) (0.0-4.3) % Baso % (Auto) (0.0-1.8) % Lymph # (Auto) (1.2-5.4) K/mm3 [place] # (Auto) (0.0-0.8) K/mm3 Eos # (Auto) (0.0-0.4) K/mm3 Baso # (Auto) (0.0-0.1) K/mm3 Seg Neutrophils % (40.0-70.0) % Seg Neutrophils # (1.8-7.7) K/mm3 Sodium 138 (137-145) mmol/L Potassium 3.7 (3.6-5.0) mmol/L Chloride 102.2 (98-107) mmol/L Carbon Dioxide 21 L (22-30) mmol/L Anion Gap 19 mmol/L BUN 7 (7-17) mg/dL Creatinine 0.7 (0.6-1.2) mg/dL Estimated GFR > 60 ml/min BUN/Creatinine Ratio 10 % Glucose 92 (65-100) mg/dL Calcium 9.1 (8.4-10.2) mg/dL Total Bilirubin 0.20 (0.1-1.2) mg/dL AST 24 (5-40) units/L ALT 17 (7-56) units/L Alkaline Phosphatase 63 (35-129) units/L Total Protein 7.4 (6.3-8.2) g/dL Albumin 3.9 (3.9-5) g/dL Albumin/Globulin Ratio 1.1 % HCG, Quant (0-4) mIU/mL Urine Color Yellow (Yellow) Urine Turbidity Slightly-cloudy (Clear) Urine pH 5.0 (5.0-7.0) Ur Specific [place] 1.010 (1.003-1.030) Urine Protein <15 mg/dl (Negative) mg/dL Urine Glucose (UA) Neg (Negative) mg/dL Urine Ketones Neg (Negative) mg/dL Urine Blood Mod (Negative) Urine Nitrite Neg (Negative) Urine Bilirubin Neg (Negative) Urine Urobilinogen < 2.0 (<2.0) mg/dL Ur Leukocyte Esterase Neg (Negative) Urine WBC (Auto) 3.0 (0.0-6.0) /HPF Urine RBC (Auto) 1.0 (0.0-6.0) /HPF U Epithel Cells (Auto) < 1.0 (0-13.0) /HPF Urine Mucus Few /HPF Blood Type - Radiology Data Radiology results: report reviewed, image reviewed Chest x-ray: Shows no acute cardiopulmonary disease - Medical Decision Making Chief medical diagnosis: Pneumonia Differential medical diagnosis UTI, anxiety, COVID-19 I will get CBC BMP urinalysis and chest x-ray I will give patient Tylenol Atarax and Zofran to go home with Critical care attestation.: If time is entered above; I have spent that time in minutes in the direct care of this critically ill patient, excluding procedure time. ED Disposition Clinical Impression: COVID-19, Body aches Disposition: HOME / SELF CARE / HOMELESS Is pt being admited?: No Does the pt Need Aspirin: No Condition: Stable Instructions: COVID-19 Prescriptions: Ibuprofen/Pseudoephedrine HCl [Advil Cold & Sinus Caplet] 1 each PO Q6H PRN #30 tablet PRN Reason: Congestion hydrOXYzine HCL [Atarax] 25 mg PO Q6HR PRN #25 tablet PRN Reason: Anxiety Ondansetron [Zofran Odt] 4 mg PO Q8HR #12 tab.rapdis Referrals: ANNA LU MD [Primary Care Provider] - 3-5 Days STEFANIA GONZALEZ MD [Referring] - 3-5 Days
[2021-02-10 03:04] VITALS: BP 132/60
== END 2021-02-10 03:01 | disposition home or self-care (01) ==
LOC: ED 17:22
DX: U07.1 COVID-19 (principal)
CPT/HCPCS: 36415; 71046; 80053; 81001; 84702; 85025; 86900; 86901; 99284